=== PATIENT | female | born 1955 | race Caucasian/White ===

== ENCOUNTER → 2016-11-25 | Outpatient (CLI) | payer OTHER ==
[~2016-11-25] MED LIST: CALC-781 PO; MULT-963 PO; PROG200C6 PO; [UNRECOGNIZED DRUG - OTHER] TOP
[2016-11-25 09:39] LABS: BASOPHILS % (AUTO) 1 % (0-10); EOSINOPHILS # (AUTO) 0.1 10^3/uL (0.0-0.3); EOSINOPHILS % (AUTO) 2 % (0-10); LYMPHOCYTES # (AUTO) 1.7 X 10^3 (1.0-4.0); LYMPHOCYTES % (AUTO) 31 % (12-44); MEAN CORPUSCULAR HEMOGLOBIN 31 PG (25-34); MEAN CORPUSCULAR HGB CONC 35 G/DL (32-36); MEAN CORPUSCULAR VOLUME 89 FL (80-99); MEAN PLATELET VOLUME 9.9 FL (7.4-10.4); MONOCYTES # (AUTO) 0.5 X 10^3 (0.0-1.0); MONOCYTES % (AUTO) 8 % (0-12); NEUTROPHILS # (AUTO) 3.2 X 10^3 (1.8-7.8); NEUTROPHILS % (AUTO) 59 % (42-75); PLATELET COUNT 220 10^3/uL (130-400); RED BLOOD COUNT 4.86 10^6/uL (4.35-5.85); RED CELL DISTRIBUTION WIDTH 12.9 % (10.0-14.5); WHITE BLOOD COUNT 5.5 10^3/uL (4.3-11.0)
[2016-11-25 09:59] LABS: ALANINE AMINOTRANSFERASE 39 U/L (0-55); ALBUMIN 4.7 G/DL (3.2-4.5); ANION GAP 9 MMOL/L (5-14); ASPARTATE AMINO TRANSFERASE 21 U/L (5-34); BILIRUBIN,TOTAL 0.3 MG/DL (0.1-1.0); BLOOD UREA NITROGEN 10 MG/DL (7-18); BUN/CREATININE RATIO 14; CALCIUM 9.4 MG/DL (8.5-10.1); CARBON DIOXIDE 24 MMOL/L (21-32); CHLORIDE 106 MMOL/L (98-107); GFR ESTIMATED > 60; GLUCOSE 110 MG/DL (70-105); POTASSIUM 4.5 MMOL/L (3.6-5.0); SODIUM 139 MMOL/L (135-145); TOTAL PROTEIN 7.4 G/DL (6.4-8.2)
--- NOTE | 2016-11-25 10:01 | Diagnostic Imaging Report ---
EXAM: CHEST 1 VIEW, AP/PA ONLY INDICATION: PRE OP TESTING RT UE PAIN WEAKNESS RT SHOULDER RTC TEAR COMPARISON: None. FINDINGS: Normal heart size and pulmonary vascularity. No focal pulmonary opacity, pleural effusion or pneumothorax. Osseous structures are unremarkable. IMPRESSION: Negative chest. Dictated by: Dictated on workstation # [id number]
== END ==
LOC: LAB 09:19
PROVIDERS: ATTEND Orthopaedic Surgery
DX: Z01.810 Encounter for preprocedural cardiovascular examination (principal); Z01.811 Encounter for preprocedural respiratory examination; Z01.812 Encounter for preprocedural laboratory examination; M75.101 Unspecified rotator cuff tear or rupture of right shoulder, not specified as traumatic
CPT/HCPCS: 36415; 71010; 80053; 85025; 93005

== ENCOUNTER → 2016-11-29 | Outpatient (CLI) | payer OTHER ==
--- NOTE | 2016-12-03 09:38 | Diagnostic Imaging Report ---
Bilateral screening mammogram The current study was also evaluated with a Computer Aided Detection (CAD) system. INDICATION: Screening. No current complaints stated on the questionnaire. COMPARISON: 11/29/2015. FINDINGS: Breasts are composed of heterogeneously dense parenchyma which may decrease mammographic sensitivity. There is a group of calcifications with minimal pleomorphism seen in the medial far posterior aspect of the left breast. The right breast appears stable. IMPRESSION: Group of likely benign calcifications seen in the far posterior medial aspect of the left breast, new from the prior exams. Better evaluation with focal compression magnification views is recommended. ACR BI-RADS Category 0: Incomplete. (Needs additional imaging evaluation). Result letter will be mailed to the patient. Note: At least 10% of breast cancer is not imaged by mammography. Dictated by: Dictated on workstation # [id number]
== END ==
LOC: RAD 11:26
PROVIDERS: ATTEND Nurse Practitioner Family
DX: Z12.31 Encounter for screening mammogram for malignant neoplasm of breast (principal)

== ENCOUNTER → 2016-12-16 | Outpatient (CLI) | payer OTHER ==
--- NOTE | 2016-12-16 21:00 | Diagnostic Imaging Report ---
Unilateral diagnostic left mammogram INDICATION: Abnormal screening mammogram The current study was also evaluated with a Computer Aided Detection (CAD) system. The screening mammogram performed on 11/29/16 noted a group of benign-appearing calcifications in the far posterior medial aspect of the left breast. These calcifications were not clearly evident on the MLO view. Compression views of this area show that these calcifications do have a generally benign appearance. Furthermore, in retrospect I feel that they were present on the prior mammogram of 10/27/13. However, they are better visualized on this study. I do suspect that these calcifications are benign. Even so, a short-term (6-month) followup mammogram left breast would be recommended for further study. IMPRESSION: The calcifications in the posterior medial aspect of left breast seen previously are most likely benign. Recommendations as above. ACR BI-RADS Category 3: Probably benign findings. Result letter will be mailed to the patient. Note: At least 10% of breast cancer is not imaged by mammography. Dictated by: Dictated on workstation # [id number]
== END ==
LOC: RAD 08:25
PROVIDERS: ATTEND Nurse Practitioner Family
DX: R92.8 Other abnormal and inconclusive findings on diagnostic imaging of breast (principal)

== ENCOUNTER 2017-03-03 13:00 | Outpatient (RCR) | payer OTHER ==
--- OUTSIDE RECORDS SUMMARY | 2017-01-20 12:43 | XMS REPORT | Continuity of Care Document ---
Author Author [facility] Organization [facility] Address Unknown Phone Unavailable Allergies Active Description Code Type Severity Reaction Onset Reported/Identified Relationship to Patient Clinical Status Yes No Known Drug Allergies [id number] Drug Allergy Unknown N/ A 11/11/2012 Medications Problems Date Dx Coded Attending Type Code Diagnosis Diagnosed By 11/11/2012 Ot 455.0 11/11/2012 Ot 569.0 11/11/2012 Ot V76.51 11/04/2014 Ot V70.0 11/04/2014 Ot V72.62 11/04/2014 Ot V76.12 11/04/2014 Ot V72.84 11/04/2014 ALTON WHITMAN, DUY Ojeda Ot V76.12 11/21/2014 ALTON WHITMAN, DUY A Ot 278.02 11/21/2014 ALTON WHITMAN, DUY Ojeda Ot V76.12 11/29/2015 Ot V70.0 11/29/2015 Ot V72.62 11/29/2015 Ot V76.12 11/29/2015 Ot V72.84 11/29/2015 ALTON WHITMAN, DUY Ojeda Ot V76.12 11/29/2015 ALTON WHITMAN, DUY Ojeda Ot 278.02 11/29/2015 ALTON WHITMAN, DUY Ojeda Ot V76.12 12/03/2016 DAVID MCCAIN APRN Ot Z12.31 ENCNTR SCREEN MAMMOGRAM FOR MALIGNANT NE 12/04/2016 JAYANT WHITMAN, ANDREW Brooks Ot M75.101 UNSP ROTATR-CUFF TEAR/RUPTR OF RIGHT JACKI 12/04/2016 ANDREW SABA MD Ot Z01.810 ENCOUNTER FOR PREPROCEDURAL CARDIOVASCUL 12/04/2016 ANDREW SABA MD Ot Z01.811 ENCOUNTER FOR PREPROCEDURAL RESPIRATORY 12/04/2016 ANDREW SABA MD Ot Z01.812 ENCOUNTER FOR PREPROCEDURAL LABORATORY E 12/06/2016 DAVID MCCAIN APRN Ot Z12.31 ENCNTR SCREEN MAMMOGRAM FOR MALIGNANT NE 12/16/2016 DAVID MCCAIN DIRECTOR OF LABOR RELATIONS Ot Z12.31 ENCNTR SCREEN MAMMOGRAM FOR MALIGNANT NE 12/17/2016 DAVID MCCAIN DIRECTOR OF LABOR RELATIONS Ot R92.8 OTH ABN AND INCONCLUSIVE FINDINGS ON DX 12/17/2016 DAVID MCCAIN DIRECTOR OF LABOR RELATIONS Ot R92.8 OTH ABN AND INCONCLUSIVE FINDINGS ON DX 01/09/2017 DAVID MCCAIN DIRECTOR OF LABOR RELATIONS Ot Z12.31 ENCNTR SCREEN MAMMOGRAM FOR MALIGNANT NE 01/09/2017 DAVID MCCAIN DIRECTOR OF LABOR RELATIONS Ot R92.8 OTH ABN AND INCONCLUSIVE FINDINGS ON DX Procedures Results Test Result Range Complete blood count (CBC) with automated white blood cell (WBC) differential - 11/25/16 09:33 Blood leukocytes automated count (number/volume) 5.5 10*3/ uL 4.3-11.0 Blood erythrocytes automated count (number/volume) 4.86 10*6 /uL 4.35-5.85 Venous blood hemoglobin measurement (mass/volume) 14.9 g/dL 11.5-16.0 Blood hematocrit (volume fraction) 43 % 35-52 Automated erythrocyte mean corpuscular volume 89 [foz_us] 80-99 Automated erythrocyte mean corpuscular hemoglobin (mass per erythrocyte) 31 pg 25-34 Automated erythrocyte mean corpuscular hemoglobin concentration measurement ( mass/volume) 35 g/dL 32-36 Automated erythrocyte distribution width ratio 12.9 % 10.0-14.5 Automated blood platelet count (count/volume) 220 10*3/uL 130-400 Automated blood platelet mean volume measurement 9.9 [foz_us ] 7.4-10.4 Automated blood neutrophils/100 leukocytes 59 % 42-75 Automated blood lymphocytes/100 leukocytes 31 % 12-44 Blood monocytes/100 leukocytes 8 % 0-12 Automated blood eosinophils/100 leukocytes 2 % 0-10 Automated blood basophils/100 leukocytes 1 % 0-10 Blood neutrophils automated count (number/volume) 3.2 10*3 1.8-7.8 Blood lymphocytes automated count (number/volume) 1.7 10*3 1.0-4.0 Blood monocytes automated count (number/volume) 0.5 10*3 0.0-1.0 Automated eosinophil count 0.1 10*3/uL 0.0-0.3 Automated blood basophil count (count/volume) 0.0 10*3/uL 0.0-0.1 Comprehensive metabolic panel - 11/25/16 09:33 Serum or plasma sodium measurement (moles/volume) 139 mmol/ L 135-145 Serum or plasma potassium measurement (moles/volume) 4.5 mmol/L 3.6-5.0 Serum or plasma chloride measurement (moles/volume) 106 mmol /L 98-107 Carbon dioxide 24 mmol/L 21-32 Serum or plasma anion gap determination (moles/volume) 9 mmol/L 5-14 Serum or plasma urea nitrogen measurement (mass/volume) 10 mg/dL 7-18 Serum or plasma creatinine measurement (mass/volume) 0.70 mg /dL 0.60-1.30 Serum or plasma urea nitrogen/creatinine mass ratio 14 NRG Serum or plasma creatinine measurement with calculation of estimated glomerular filtration rate > NRG Serum or plasma glucose measurement (mass/volume) 110 mg/dL 70-105 Serum or plasma calcium measurement (mass/volume) 9.4 mg/dL 8.5-10.1 Serum or plasma total bilirubin measurement (mass/volume) 0.3 mg/dL 0.1-1.0 Serum or plasma alkaline phosphatase measurement (enzymatic activity/volume) 96 U/L 40-136 Serum or plasma aspartate aminotransferase measurement (enzymatic activity/ volume) 21 U/L 5-34 Serum or plasma alanine aminotransferase measurement (enzymatic activity/volume ) 39 U/L 0-55 Serum or plasma protein measurement (mass/volume) 7.4 g/dL 6.4-8.2 Serum or plasma albumin measurement (mass/volume) 4.7 g/dL 3.2-4.5 Encounters ACCT No. Visit Date/Time Discharge Status Pt. Type Provider Facility Loc./Unit Complaint [id number] 11/04/2014 11:04:00 2013 23:59:59 CLS Outpatient DUY DANG MD [facility] RAD [id number] 10/27/2013 11:15:00 2012 23:59:59 CLS Outpatient DUY DANG MD [facility] RAD [id number] 01/20/2017 09:03:00 PEN Preadmit ANDREW SABA MD [facility] REHAB S/P R RCR [id number] 12/16/2016 08:25:00 ACT Outpatient DAVID MCCAIN APRN [facility] RAD ABNORMAL SCREENING MAMMO [id number] 11/29/2016 11:26:00 ACT Outpatient DAVID MCCAIN APRN [facility] RAD SCREENING [id number] 11/25/2016 09:19:00 ACT Outpatient JAYANT WHITMAN, ANDREW Brooks [facility] LAB PRE OP TESTING; RT UE PAIN [id number] 11/29/2015 15:17:00 ACT Outpatient DAVID MCCAIN APRN [facility] RAD [id number] 11/11/2012 08:29:00 Document Registration [id number] 11/10/2012 13:48:00 Document Registration [id number] 09/23/2012 09:26:00 Document Registration
== END 2017-03-07 15:51 | disposition home or self-care (01) ==
PROVIDERS: ATTEND Orthopaedic Surgery
DX: Z47.89 Encounter for other orthopedic aftercare (principal)

== ENCOUNTER → 2017-06-18 | Outpatient (CLI) | payer OTHER ==
--- NOTE | 2017-06-18 09:19 | Diagnostic Imaging Report ---
EXAMINATION: Left breast diagnostic mammogram with tomography. The current study was also evaluated with a Computer Aided Detection (CAD) system. INDICATION: Followup calcifications in the medial aspect of the left breast along the far posterior aspect. COMPARISON: 12/16/2016. FINDINGS: The left breast is composed of heterogeneously dense parenchyma which may decrease mammographic sensitivity. A group of calcifications is noted at the far posterior medial aspect of the left breast. The tomographic images demonstrate these calcifications to be seen along the top image on the CC projection and on the medial most image on the true lateral view, suggestive of a location of these calcifications in the skin. IMPRESSION: Stable calcifications along the medial superior far posterior aspect of the breast are likely benign skin calcifications. Another followup in 6 months is recommended when the patient is due for her bilateral mammogram. ACR BI-RADS Category 3: Probably benign findings. Result letter will be mailed to the patient. Note: At least 10% of breast cancer is not imaged by mammography. Dictated by: Dictated on workstation # [id number]
== END ==
LOC: RAD 08:26
PROVIDERS: ATTEND Family Medicine
DX: R92.8 Other abnormal and inconclusive findings on diagnostic imaging of breast (principal)

== ENCOUNTER → 2017-12-24 | Outpatient (CLI) | payer OTHER ==
--- NOTE | 2017-12-24 10:09 | Diagnostic Imaging Report ---
INDICATION: Routine screening. The current study was also evaluated with a Computer Aided Detection (CAD) system. Comparison is made with prior mammogram from 06/18/2017, 11/29/2016 and 11/29/2015. Both breasts demonstrate moderate parenchymal heterogeneity and increased density, limiting the sensitivity of mammography. No spiculated mass is identified. Previously noted calcifications in the far posterior left breast in the upper medial aspect appears stable. No malignant appearing microcalcifications are seen. The axillae are unremarkable. IMPRESSION: No mammographic features suspicious for malignancy are identified. ACR BI-RADS Category 2: Benign findings. Result letter will be mailed to the patient. Note: At least 10% of breast cancer is not imaged by mammography. Dictated by: Dictated on workstation # [id number]
== END ==
LOC: RAD 09:10
PROVIDERS: ATTEND Family Medicine
DX: Z12.31 Encounter for screening mammogram for malignant neoplasm of breast (principal)
CPT/HCPCS: 77067

== ENCOUNTER 2018-11-18 11:53 | Outpatient (RCR) | payer OTHER | END 2019-02-16 | disposition home or self-care (01) | LOC: CARD 11:53 | PROVIDERS: ATTEND Nurse Practitioner Family | DX: R00.2 Palpitations (principal) | CPT/HCPCS: 93225; 93226 ==

== ENCOUNTER → 2019-01-20 | Outpatient (CLI) | payer OTHER ==
--- NOTE | 2019-01-20 18:11 | Diagnostic Imaging Report ---
Digital mammogram bilateral screening with 3D tomosynthesis. The current study was also evaluated with a Computer Aided Detection (CAD) system. INDICATION: Screening. This study was compared to the prior exams of 12/24/2017, 06/18/2017, 11/29/2016, and 11/29/2015. At this time, there are no current complaints. FINDINGS: The fibroglandular tissue in both breasts is heterogeneously dense. This does limit the sensitivity of this exam. In the interval since the prior study, a small group of microcalcifications has developed deep in the upper-outer quadrant of the left breast approximately 12 cm from the nipple. These calcifications do not have a threatening appearance, but they are technically indeterminate. I would recommend that a compression/magnification view of the calcifications in question be obtained in the CC and ML projections for further study. A few other calcifications have developed in both breasts. These have a benign appearance. There is no primary or secondary sign of malignancy noted. IMPRESSION: Additional mammographic views of the left breast will be recommended for further study. ACR BI-RADS Category 0: Incomplete. (Needs additional imaging evaluation). Result letter will be mailed to the patient. Note: At least 10% of breast cancer is not imaged by mammography. Dictated by: Dictated on workstation # [id number]
== END ==
LOC: RAD 07:30
PROVIDERS: ATTEND Family Medicine
DX: Z12.31 Encounter for screening mammogram for malignant neoplasm of breast (principal)
CPT/HCPCS: 77067

== ENCOUNTER → 2019-02-01 | Outpatient (CLI) | payer OTHER ==
--- NOTE | 2019-02-01 19:01 | Diagnostic Imaging Report ---
INDICATION: Left breast calcifications. Patient presents for additional views. COMPARISON: Correlation is made with the screening study from 01/20/2019. TECHNIQUE: Unilateral left 2D and 3D diagnostic mammography was performed with CAD including magnification CC and ML views as well as a conventional 90 degree lateral view. FINDINGS: The new cluster of microcalcifications described on the screening study in the upper outer left breast appear to be primarily punctate and benign. No associated soft tissue mass is seen. No definite pleomorphism is detected. IMPRESSION: Likely benign calcifications in the upper-outer left breast at posterior depth. A followup left mammogram in 6 months is recommended to confirm stability. ACR BI-RADS Category 3: Probably benign findings. Result letter will be mailed to the patient. Note: At least 10% of breast cancer is not imaged by mammography. Dictated by: Dictated on workstation # [id number]
== END ==
LOC: RAD 14:15
PROVIDERS: ATTEND Nurse Practitioner Family
DX: R92.1 Mammographic calcification found on diagnostic imaging of breast (principal)

== ENCOUNTER → 2019-08-25 | Outpatient (CLI) | payer OTHER ==
--- NOTE | 2019-08-26 19:06 | Diagnostic Imaging Report ---
EXAMINATION: Unilateral diagnostic left mammogram. INDICATION: Left breast calcification. The current study was also evaluated with a Computer Aided Detection (CAD) system. 3-D tomosynthesis was also performed and reviewed. FINDINGS: The screening mammogram performed on 01/20/2019 noted a group of benign-appearing calcifications in the upper-outer aspect of the left breast, approximately 12 cm from the nipple. These had developed since the prior exam of 12/24/2017. The subsequent diagnostic mammogram of 02/01/2019 indicated that the calcifications were most likely benign. On this study, the calcifications in question appear stable. I do suspect that they are benign. Even so, I would recommend that these calcifications be reexamined with a diagnostic mammogram when the patient has her screening mammogram of the right breast in December of 2019. The fibroglandular tissue in the left breast is heterogeneously dense, and this does limit the sensitivity of this exam. There is no primary or secondary sign of malignancy noted otherwise. IMPRESSION: The small group of microcalcifications deep in the upper-outer aspect of the left breast seen previously appears stable. These are most likely benign. Recommendations as above. ACR BI-RADS Category 3: Probably benign findings. Result letter will be mailed to the patient. Note: At least 10% of breast cancer is not imaged by mammography. Dictated by: Dictated on workstation # [id number]
== END ==
LOC: RAD 08:07
PROVIDERS: ATTEND Nurse Practitioner Family
DX: R92.0 Mammographic microcalcification found on diagnostic imaging of breast (principal)

== ENCOUNTER → 2020-01-19 | Outpatient (CLI) | payer OTHER ==
--- NOTE | 2020-01-19 13:23 | Diagnostic Imaging Report ---
INDICATION: Left breast calcifications. Patient presents for six-month follow-up. COMPARISON: Correlation is made with prior mammograms from 08/25/2019, 01/20/2019, and 12/24/2017. TECHNIQUE: Bilateral 2-D and 3-D diagnostic mammography was performed. The current study was also evaluated with a Computer Aided Detection (CAD) system. 3-D tomosynthesis was also performed and reviewed. FINDINGS: Both breasts remain heterogeneously dense, limiting the sensitivity of mammography. The small cluster of microcalcifications in the upper-outer left breast posterior depth appears stable. Additional cluster in the central left breast posterior depth is stable. No new mass or new microcalcifications are seen. Axillae are unremarkable. IMPRESSION: Stable cluster of microcalcifications in the upper-outer left breast. This now shows one year of stability. Additional six-month follow-up is recommended to show continued stability. ACR BI-RADS Category 3: Probably benign findings. Result letter will be mailed to the patient. Note: At least 10% of breast cancer is not imaged by mammography. Dictated by: Dictated on workstation # [id number]
== END ==
LOC: RAD 12:24
PROVIDERS: ATTEND Nurse Practitioner Family
DX: R92.0 Mammographic microcalcification found on diagnostic imaging of breast (principal)
CPT/HCPCS: 77066

== ENCOUNTER → 2020-08-09 | Outpatient (CLI) | payer OTHER ==
--- NOTE | 2020-08-09 16:01 | Diagnostic Imaging Report ---
INDICATION: Left breast calcifications. Patient presents for six-month follow-up. Comparison is made with prior mammogram 01/19/2020, 08/25/2019 as well as 01/20/2019. Unilateral left 2-D and 3-D diagnostic mammography was performed with CAD. The left breast remains heterogeneously dense, limiting sensitivity of mammography. The cluster of microcalcifications upper outer left breast posterior depth appears stable. This now shows 18 months of stability. Additional cluster in the posterior central breast is stable as well. No new mass or new malignant appearing microcalcifications are seen. Left axilla is unremarkable and contains benign calcifications. IMPRESSION: BI-RADS 3 Stable left breast calcifications. These show 18 months of stability. One final six-month follow-up is recommended to show continued stability for 2 years. ACR BI-RADS Category 3: Probably benign findings. Dictated by: Dictated on workstation # [id number]
== END ==
LOC: RAD 12:09
PROVIDERS: ATTEND Nurse Practitioner Family
DX: R92.1 Mammographic calcification found on diagnostic imaging of breast (principal)
CPT/HCPCS: 77065; G0279

== ENCOUNTER → 2021-02-21 | Outpatient (CLI) | payer OTHER ==
--- NOTE | 2021-02-22 08:40 | Diagnostic Imaging Report ---
INDICATION: Six-month follow-up left breast calcifications. Correlation is made with prior mammograms 08/09/2020 01/19/2020. 2-D and 3-D bilateral diagnostic mammography was performed with CAD. Both breasts are heterogeneously dense, limiting sensitivity of mammography. The calcifications in the upper outer posterior left breast are stable. Calcifications in the posterior central left breast are stable. No mass or malignant appearing microcalcifications are seen. Axillae are unremarkable. IMPRESSION: BI-RADS Category 2 Stable left breast calcifications. These now show 24 months of stability. Patient may return to routine annual screening mammography. ACR BI-RADS Category 2: Benign findings. Result letter will be mailed to the patient. Note: At least 10% of breast cancer is not imaged by mammography. Dictated by: Dictated on workstation # [id number]
== END ==
LOC: RAD 09:15
PROVIDERS: ATTEND Family Medicine
DX: R92.1 Mammographic calcification found on diagnostic imaging of breast (principal)
CPT/HCPCS: 77066; G0279; 77062

== ENCOUNTER → 2022-02-12 | Outpatient (CLI) | payer MEDICARE, OTHER ==
--- NOTE | 2022-02-12 12:58 | Diagnostic Imaging Report ---
INDICATION: Routine screening. COMPARISON: 02/21/2021 and 01/19/2020. TECHNIQUE: 2D and 3D bilateral screening mammography was performed with CAD. FINDINGS: Both breasts are heterogeneously dense, limiting the sensitivity of mammography. There is a fairly well-circumscribed nodular density noted in the central right breast on the CC view at the nipple line. This is not well visualized on the MLO view. Additional views are recommended. The left breast is unremarkable. No malignant-appearing microcalcifications are seen. There are benign calcifications bilaterally. The axillae are unremarkable. IMPRESSION: Right breast density. Additional views are recommended for further evaluation. This should include spot compression and rolled CC views as well as conventional 90 degree lateral view. ACR BI-RADS Category 0: Incomplete. (Needs additional imaging evaluation). Result letter will be mailed to the patient. Note: At least 10% of breast cancer is not imaged by mammography. Dictated by: Dictated on workstation # [id number]
== END ==
LOC: RAD 11:30
PROVIDERS: ATTEND Nurse Practitioner Family
DX: Z12.31 Encounter for screening mammogram for malignant neoplasm of breast (principal)
CPT/HCPCS: 77063; 77067

== ENCOUNTER → 2022-02-18 | Outpatient (CLI) | payer MEDICARE, OTHER ==
--- NOTE | 2022-02-18 13:10 | Diagnostic Imaging Report ---
INDICATION: Right breast density. Patient presents for additional views. COMPARISON: 02/12/2022. TECHNIQUE: Unilateral right 2D and 3D diagnostic mammography was performed with CAD. This included spot compression CC, rolled CC, and conventional 90 degree lateral views. FINDINGS: Spot compression views show a persistent circumscribed density approximately 6 cm behind the nipple at the nipple line. It is difficult to locate with certainty on the ML view. Rolled CC views show some persistent areas of nodularity. These may represent cysts. No suspicious microcalcifications are seen. IMPRESSION: Persistent circumscribed density at the nipple line 6 cm behind the nipple on the CC view. Further evaluation with ultrasound is recommended and will be performed today. ACR BI-RADS Category 0: Incomplete. (Needs additional imaging evaluation). Result letter will be mailed to the patient. Note: At least 10% of breast cancer is not imaged by mammography. Dictated by: Dictated on workstation # [id number]
--- NOTE | 2022-02-18 13:42 | Diagnostic Imaging Report ---
INDICATION: Right breast density. Correlation is made with diagnostic mammogram earlier the same day and screening mammogram from 02/12/2022. Sonographic interrogation of the right breast was performed. There is a small cyst at the 6:00 location of the right breast, 4 cm from the nipple measuring 4 mm x 2 mm x 5 mm. No internal vascularity is seen. This likely accounts for the mammographic density. No concerning sonographic findings are identified. IMPRESSION: BI-RADS Category 2 Simple cyst 6:00 location right breast, 4 cm from the nipple, likely accounting for the mammographic density. Patient may return to routine annual screening mammography. ACR BI-RADS Category 2: Benign findings. Result letter will be mailed to the patient. Note: At least 10% of breast cancer is not imaged by mammography. Dictated by: Dictated on workstation # [id number]
== END ==
LOC: RAD 12:45
PROVIDERS: ATTEND Nurse Practitioner Family
DX: N60.01 Solitary cyst of right breast (principal)
CPT/HCPCS: 76642; 77065; G0279

== ENCOUNTER → 2022-06-19 | Outpatient (CLI) | payer MEDICARE, OTHER | LOC: PREOP 05:40 | PROVIDERS: ATTEND Internal Medicine | DX: Z01.818 Encounter for other preprocedural examination (principal) ==

== ENCOUNTER 2022-07-12 08:11 | Day surgery (SDC) | payer MEDICARE, OTHER ==
--- NOTE | 2022-06-19 08:19 | HISTORY AND PHYSICAL ---
DATE OF SERVICE: COLONOSCOPY HISTORY AND PHYSICAL REFERRING PHYSICIAN: Sarahy Velazquez MD HISTORY OF PRESENT ILLNESS: The patient is a 66-year-old white female referred for screening colonoscopy. She had one other colonoscopy 10 years ago, at which time she had reported 3 mm tubular adenoma removed from the rectum and mild diverticular disease with no other abnormalities being appreciated. She is deemed to be of average risk as she is not aware of any family history for colon cancer and she denies bright red blood per rectum, change in bowel habit, change in weight or abdominal pain. PAST MEDICAL HISTORY: Significant for some osteoarthritis and hyperlipidemia with no known history of vascular disease. MEDICATIONS: She does have a history of reflux, denying dysphagia, any symptoms as long as she takes Nexium and has had no melena. Other medications include meloxicam 7.5 mg daily and fenofibrate, unknown dose daily. PAST SURGICAL HISTORY: She had laparoscopic meniscal repair of the right knee in 2007 and has had rotator cuff repair in 2017. FAMILY HISTORY: Noncontributory. She reports no family history for GI tract malignancy including colon cancer. 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 She has no past smoking and no past drinking history. REVIEW OF SYSTEMS: CONSTITUTIONAL: Denies night sweats, chills, fever, change in weight. GASTROINTESTINAL: As noted in the HPI. PULMONARY: Denies cough, wheezing or shortness of breath. CARDIOVASCULAR: Denies chest pain, orthopnea, PND, pedal edema or syncope. PHYSICAL EXAMINATION: GENERAL: Reveals a pleasant white female, appears to be in no acute distress. VITAL SIGNS: Weight 182.4 pounds. HEENT: Unremarkable. Sclerae nonicteric. CHEST: Clear to auscultation. CARDIOVASCULAR: Reveals a regular rate and rhythm without murmur, S3 or S4. ABDOMEN: Soft, supple without mass, organomegaly or tenderness. EXTREMITIES: Reveal no cyanosis, clubbing or edema. ASSESSMENT AND PLAN: The patient is being set up for screening colonoscopy. Prep instructions were given. Questions were answered and electronic medical record was reviewed. I thank you for the referral of this pleasant lady. Job ID: [id number] DocumentID: [id number] Dictated Date: 05/22/2022 09:58:33 [employer] Supervisor Date: 05/22/2022 10:33:01 Dictated By: NILO HEREDIA MD
[~2022-07-12] VITALS: Ht 162.6 cm; Wt 77.1 kg
[2022-07-12] MEDS ORDERED: LACTATED RINGERS 1,000 ML IV STA (08:29)
[2022-07-12 08:40] VITALS: BP 147/91
--- NOTE | 2022-07-12 08:44 | Pre-Op Note & Conscious Sedat ---
Pre-Operative Progress Note Date H&P Reviewed: Jul 12, 2022 Time H&P Reviewed: 08:43 History & Physical: H&P Reviewed, Patient Examed, No changes noted Pre-Op Diagnosis: screening colon Conscious Sedation Pre-Proced ASA Score 2 For ASA 3 and 4: Consider anesthesia and medical clearance. Also, for patients with a history of failed moderate sedation consider anesthesia. Airway Lungs Heart ASA score ASA 1: a normal healthy patient ASA 2: a patient with a mild systemic disease (mid diabetes, controlled hypertension, obesity ASA 3: a patient with a severe systemic disease that limits activity (angina, COPD, prior Myocardial infarction) ASA 4: a patient with an incapacitating disease that is a constant threat to life (CHF, renal failure) ASA 5: a moribund patient not expected to survive 24 hrs. (ruptured aneurysm) ASA 6: a declared brain- patient whose organs are being harvested. For emergent operations, add the letter E after the classification Mallampati Classification Grade 2 Sedation Plan Analgesia, Amnesia, Plan communicated to team members, Discussed options with patient/fam, Discussed risks with patient/fam The patient is an appropriate candidate to undergo the planned procedure, sedation, and anesthesia. The patient immediately re-assessed prior to indication. NILO HEREDIA MD Jul 12, 2022 08:44
[2022-07-12] MEDS ORDERED: MELO7.5T46 PO (08:54)
[2022-07-12] MEDS ORDERED: NF-ESOM40C PO (08:54)
[2022-07-12] MEDS ORDERED: FENO134C21 PO (08:54)
[2022-07-12] MEDS ORDERED: BACI1CAP6 PO (08:54)
[2022-07-12] MEDS ORDERED: MIDAZOLAM 2 MG/2 ML (VERSED) VIAL ONE (09:12)
[2022-07-12] MEDS ORDERED: PROPOFOL INJECTION 50 ML IV ONE (09:12)
[2022-07-12 09:44] VITALS: BP 148/84
--- NOTE | 2022-07-12 09:46 | Progress Note-Post Operative ---
Post-Procedure Note Physician (s)/Import Clerk (s) Physician NILO HEREDIA MD Pre-Procedure Diagnosis Pre-Procedure Diagnosis: screening colon Post-Procedure Diagnosis Post-operative diagnosis: 2 polyps removed hot forceps distal transverse and upper lip ileocecal valve. Moderate sigmoid diverticular disease NILO HEREDIA MD Jul 12, 2022 09:46
[2022-07-12 09:49] VITALS: BP 136/79
[2022-07-12 09:54] VITALS: BP 135/76
[2022-07-12 09:55] VITALS: BP 135/76
[2022-07-12 10:35] VITALS: BP 129/69
--- NOTE | 2022-07-12 11:30 | Anesthesia-General Post-Op ---
MAC Patient Condition Mental Status/LOC: Same as Preop Cardiovascular: Satisfactory Nausea/Vomiting: Absent Respiratory: Satisfactory Pain: Controlled Complications: Absent Post Op Complications Complications None Follow Up Care/Instructions Patient Instructions None needed. Anesthesiology Discharge Order Discharge Order Patient is doing well, no complaints, stable vital signs, no apparent adverse anesthesia problems. No complications reported per nursing. KINGS GIL CRNA Jul 12, 2022 11:30
--- NOTE | 2022-07-12 15:37 | OPERATIVE REPORT ---
DATE OF SERVICE: COLONOSCOPY SUMMARY INDICATION FOR THE PROCEDURE: Screening. DESCRIPTION OF PROCEDURE: The patient was placed in the left lateral decubitus position. Prior to undergoing colonoscopy, digital rectal evaluation was performed. Anal sphincter tone was normal and the perianal reflexes intact. No abnormalities were noted on digital inspection of anal canal or distal rectal vault. The colonoscope was then inserted and the rectum and under direct visualization advanced to cecum. The cecum was identified by identification of ileocecal valve and cecal strap. Photographic documentation was obtained. Careful inspection was made as the colonoscope withdrawn. Quality of prep was fair. FINDINGS: Several grade I internal hemorrhoid complexes were noted with no evidence for external hemorrhoids. The rectum was otherwise unremarkable. Moderate diverticular disease with haustral hypertrophy confined to the sigmoid colon was present without evidence for diverticulitis. No other sigmoid colonic abnormalities were appreciated. The descending colon was unremarkable. As was the splenic flexure, a 2 mm sessile distal transverse colon polyp was noted subsequently biopsied and ablated with no blood loss. The remainder of the transverse colon and hepatic flexure were unremarkable. Present on the upper lip of the ileocecal valve was a questionable polyp that was photographed and biopsied and ablated with no subsequent blood loss. Cecum was unremarkable. ASSESSMENT: Two small polyps were removed. We will need to await histopathology report before making future surveillance colonoscopic recommendation. Moderate diverticular disease confined to the sigmoid colon was present without evidence for diverticulitis. The patient did have several grade I internal hemorrhoid complexes. I thank you for the referral. Job ID: [id number] DocumentID: [id number] Dictated Date: 07/12/2022 09:43:29 Senior Product Development Scientist Date: 07/12/2022 15:37:19 Dictated By: NILO HEREDIA MD
--- NOTE | 2022-07-18 02:21 | OPERATIVE REPORT ---
DATE OF SERVICE: ADDENDUM Colonoscopy report, which was done last 07/12/2022. This addendum regards histopathology report on this patient's colonoscopy from 07/12/2022. The questionable polyp on the upper lip of the ileocecal valve that was subtle with rather indistinct borders did come back as a tubular adenoma. There was no evidence for dysplasia, but we did contact the patient, recommending a 1-year followup. I will re-biopsy the area and would be looking for any evidence for recurrence. We have put her on our callback list in one year. I thank you for the referral of this pleasant lady. Job ID: [id number] DocumentID: [id number] Dictated Date: 07/17/2022 17:12:46 Obstetrics Technician Date: 07/18/2022 02:20:27 Dictated By: NILO HEREDIA MD MTDD
== END 2022-07-12 10:38 | disposition home or self-care (01) ==
LOC: ENDO 08:11
PROVIDERS: ATTEND Internal Medicine
DX: Z12.11 Encounter for screening for malignant neoplasm of colon (principal); D12.0 Benign neoplasm of cecum; K63.5 Polyp of colon; K64.8 Other hemorrhoids; K57.30 Diverticulosis of large intestine without perforation or abscess without bleeding
CPT/HCPCS: 88305

== ENCOUNTER → 2023-02-18 | Outpatient (CLI) | payer MEDICARE, OTHER ==
[~2023-02-18] MED LIST changes: +BACI1CAP6 PO; +FENO134C21 PO; +MELO7.5T46 PO; +NF-ESOM40C PO
--- NOTE | 2023-02-18 15:47 | Diagnostic Imaging Report ---
INDICATION: Routine screening. Comparison is made with prior mammogram from 02/12/2022 and 02/21/2021. 2-D and 3-D bilateral screening mammography was performed with CAD. Both breasts are heterogeneously dense, limiting the sensitivity of mammography. No mass or malignant-appearing microcalcifications are seen. There are occasional benign calcifications present. Axillae are unremarkable. IMPRESSION: No mammographic features suspicious for malignancy are identified. ACR BI-RADS Category 2: Benign findings. Result letter will be mailed to the patient. Note: At least 10% of breast cancer is not imaged by mammography. BI-RADS Category 2 Dictated by: Dictated on workstation # [id number]
== END ==
LOC: RAD 07:20
PROVIDERS: ATTEND Family Medicine
DX: Z12.31 Encounter for screening mammogram for malignant neoplasm of breast (principal)
CPT/HCPCS: 77063; 77067

== ENCOUNTER 2023-07-30 05:42 | Outpatient (CLI) | payer MEDICARE, OTHER ==
[~2023-07-30] VITALS: Ht 160 cm; Wt 83.1 kg
[2023-07-30] MEDS ORDERED: LOSA25TA41 PO (10:27)
[2023-07-30] MEDS ORDERED: HYDR12.56 PO (10:27)
== END 2023-07-30 10:35 | disposition home or self-care (01) ==
LOC: PREOP 05:42
PROVIDERS: ATTEND Internal Medicine
DX: Z01.818 Encounter for other preprocedural examination (principal)

== ENCOUNTER 2023-08-08 09:38 | Day surgery (SDC) | payer MEDICARE, OTHER ==
--- NOTE | 2023-07-25 06:33 | HISTORY AND PHYSICAL ---
COLONOSCOPY HISTORY AND PHYSICAL HISTORY OF PRESENT ILLNESS: The patient is seen for surveillance colonoscopy due to past history of colon polyps. She had 2 polyps removed. One at the splenic flexure and the other was present on the upper lip of the ileocecal valve. This was flatter in nature and did return as a tubular adenoma, for which she is undergoing a surveillance currently. She reports she has felt well. There have been no changes in her health history. She has had no abdominal pain and had no difficulty with her colonoscopy. She has noted no bright red blood per rectum or melena, and reports no change in weight. There is no family history for colon cancer that she is aware of. She has had no surgery or change in health history since I have performed a colonoscopy a little over a year ago. PHYSICAL EXAMINATION: GENERAL: Reveals a white female, who appeared to be in no acute distress. VITAL SIGNS: Weight is stable at 183 pounds, blood pressure 130/80. CHEST: Clear. CARDIOVASCULAR: Reveals regular rate and rhythm without murmur, S3, or S4. ABDOMEN: Soft, supple without mass, organomegaly, or tenderness. ASSESSMENT AND PLAN: The patient is being set up for screening colonoscopy due to past history of colon polyp with attention to the upper lip of the ileocecal valve where she had a flat, subtle adenoma, tubular in etiology without dysplasia for histopathology. Other medical issues include hypertension that appears to be well controlled and overweight status, BMI of 33. Prep instructions were given and questions were answered. Job ID: [id number] DocumentID: [id number] Dictated Date: 07/23/2023 15:54:03 Brand Marketing Coordinator Date: 07/23/2023 16:33:00 Dictated By: NILO HEREDIA MD
[~2023-08-08] VITALS: Ht 160 cm; Wt 83.1 kg
[~2023-08-08 09:38] MED LIST changes: +HYDR12.56 PO; +LOSA25TA41 PO
[2023-08-08] MEDS ORDERED: LACTATED RINGERS 1,000 ML 1,000 ML IV STA (09:45)
--- NOTE | 2023-08-08 10:09 | Pre-Op Note & Conscious Sedat ---
Pre-Operative Progress Note Date H&P Reviewed: Aug 08, 2023 Time H&P Reviewed: 10:08 History & Physical: H&P Reviewed, Patient Examed, No changes noted Pre-Op Diagnosis: colon polyps Moderate Sedation PreProcedure ASA Score 2 Airway Lungs Heart ASA score ASA 1: a normal healthy patient ASA 2: a patient with a mild systemic disease (mid diabetes, controlled hypertension, obesity ASA 3: a patient with a severe systemic disease that limits activity (angina, COPD, prior Myocardial infarction) ASA 4: a patient with an incapacitating disease that is a constant threat to life (CHF, renal failure) ASA 5: a moribund patient not expected to survive 24 hrs. (ruptured aneurysm) ASA 6: a declared brain- patient whose organs are being harvested. For emergent operations, add the letter E after the classification Mallampati Classification Grade 2 Sedation Plan Analgesia, Amnesia, Plan communicated to team members, Discussed options with patient/fam, Discussed risks with patient/fam The patient is an appropriate candidate to undergo the planned procedure, sedation, and anesthesia. The patient immediately re-assessed prior to indication. NILO HEREDIA MD Aug 08, 2023 10:09
--- NOTE | 2023-08-08 11:17 | Progress Note-Post Operative ---
Post-Procedure Note Physician (s)/Obstetrics Tech (s) Physician NILO HEREDIA MD Pre-Procedure Diagnosis Pre-Procedure Diagnosis: colon polyps Post-Procedure Diagnosis Post-operative diagnosis: Prior to undergoing colonoscopy digital rectal evaluation was performed. Anal sphincter tone was normal and the perianal reflexes intact. No abnormalities noted on digital inspection anal canal or distal rectal vault. The colonoscope was inserted into the rectum and under direct visualization advanced to the cecum. The cecum was identified by identification of the ileocecal valve and the cecal strap. Photographic documentation was obtained. Careful inspection was made as the colonoscope was withdrawn. Quality the prep was good. Findings: There are no evidence for internal/external hemorrhoids and the rectum was unremarkable. Mild diverticular disease confined to the sigmoid colon was present without evidence of diverticulitis. The descending colon splenic flexure were unremarkable. There was a sessile 4 mm polyp noted in the mid transverse colon was biopsied and ablated with no blood loss. The remainder the transverse colon and hepatic flexure were unremarkable. The ascending colon was unremarkable. There was a diminutive cecal polyp 3 mm in size which was biopsied and ablated with no blood loss. There is questionable polyp along the lower lip of the ileocecal valve versus terminal ileal tissue biopsy and ablation was performed the upper lip of the ileocecal valve was unremarkable. A/P 1. 2 diminutive polyps removed via cauterization from mid transverse colon and cecum and there was one questionable polyp along the lower lip of the ileocecal valve. We will await on histopathology report and then make a recommendation for future surveillance colonoscopy. Again noted was mild diverticular disease confined to the sigmoid colon. NILO HEREDIA MD Aug 08, 2023 11:17
[2023-08-08 11:18] VITALS: BP 142/87
[2023-08-08 11:30] VITALS: BP 133/80
[2023-08-08 11:49] VITALS: BP 133/80
--- NOTE | 2023-08-08 14:04 | Anesthesia-General Post-Op ---
MAC Patient Condition Mental Status/LOC: Same as Preop Cardiovascular: Satisfactory Nausea/Vomiting: Absent Respiratory: Satisfactory Pain: Controlled Complications: Absent Post Op Complications Complications None Follow Up Care/Instructions Patient Instructions None needed. Anesthesiology Discharge Order Discharge Order Patient was doing well after the procedure with no complaints, stable vital signs, no apparent adverse anesthesia problems. No complications reported per nursing. DANIEL JIMENEZ DO Aug 08, 2023 14:04
== END 2023-08-08 12:18 | disposition home or self-care (01) ==
LOC: ENDO 09:38
PROVIDERS: ATTEND Internal Medicine
DX: Z12.11 Encounter for screening for malignant neoplasm of colon (principal); K63.5 Polyp of colon; K57.30 Diverticulosis of large intestine without perforation or abscess without bleeding